=== PATIENT | female | born 1945 | race Caucasian/White ===

== ENCOUNTER 2022-05-16 22:52 | Inpatient (IN) | payer MEDICARE ==
[~2022-05-16] VITALS: Ht 165.1 cm; Wt 65.8 kg
[2022-05-16 23:39] LABS: HEMATOCRIT 41.5 % (31.2-41.9); MEAN CORPUSCULAR HEMOGLOBIN 30.2 uug (24.7-32.8); MEAN CORPUSCULAR VOLUME 87.9 fL (75.5-95.3); PLATELET COUNT (AUTO) 366 K/uL (179-408)
[2022-05-16] MEDS ORDERED: KETAMINE HCL 500 MG/10 ML INJ ONE (23:40)
[2022-05-16 23:45] LABS: NEUTROPHILS % (MANUAL) 0 % (42-75)
[2022-05-16] MEDS ORDERED: KETAMINE HCL 500 MG/10 ML INJ IV ONE (23:45)
[2022-05-16 23:56] LABS: ALANINE AMINOTRANSFERASE 18 U/L (14-59); ALKALINE PHOSPHATASE 76 U/L (50-136); ASPARTATE AMINOTRANSFERASE 13 U/L (15-37); BILIRUBIN,DIRECT 0.2 mg/dL (0.0-0.2); BILIRUBIN,TOTAL 0.9 mg/dL (0.2-1.0); CARBON DIOXIDE 26 mmol/L (21-32); CHLORIDE 99 mmol/L (98-107); CREATININE 1.1 mg/dL (0.6-1.3); GLUCOSE 123 mg/dL (74-106); TOTAL PROTEIN, SERUM 7.4 g/dL (6.4-8.2); UREA NITROGEN, BLOOD 20 mg/dL (7-18)
[2022-05-16 23:57] LABS: ACETAMINOPHEN < 2.0 ug/mL (10-30); POTASSIUM 2.8 mmol/L (3.5-5.1)
[2022-05-17 00:01] LABS: ETHANOL < 3 MG/DL (0-0)
[2022-05-17 00:19] LABS: THYROID STIMULATING HORMONE 4.686 mIU/mL (0.358-3.740)
[2022-05-17] MEDS: MAGNESIUM SULFATE/D5W 100 ML IV SCH ×2 (00:30→03:00)
[2022-05-17] MEDS: POTASSIUM CHLORIDE 50 ML IV SCH ×4 (00:30→03:30)
[2022-05-17] MEDS ORDERED: POTASSIUM CHLORIDE 200 ML ONE (00:55)
[2022-05-17] MEDS ORDERED: MAGNESIUM SULFATE/D5W 200 ML ONE (00:56)
[2022-05-17] MEDS ORDERED: CEFTRIAXONE 2 G in IV DEXTROSE 5% 100 ML IV ONE (01:30)
[2022-05-17] MEDS ORDERED: ACYCLOVIR IV 1,000 MG in IV DEXTROSE 5% 250 ML IV ONE (01:30)
[2022-05-17] MEDS ORDERED: TRIA15CR2 TP (01:42)
[2022-05-17] MEDS ORDERED: DUPI200S SQ (01:42)
[2022-05-17] MEDS ORDERED: FLUO118.7 TP (01:42)
[2022-05-17] MEDS ORDERED: CLOB15CR4 TP (01:42)
[2022-05-17] MEDS ORDERED: KETOROLAC TROMETHAMINE 60 MG INJ IM ONE ×2 (01:54→02:00)
[2022-05-17] MEDS ORDERED: ACYCLOVIR 500 MG VIAL IV ONE (02:13)
[2022-05-17] MEDS ORDERED: CEFTRIAXONE 1 G VIAL ONE (02:13)
[2022-05-17 03:09] LABS: *BILIRUBIN,URIN NEGATIVE (NEGATIVE); *BLOOD, URINE NEGATIVE (NEGATIVE); *CLARITY,URINE CLEAR (CLEAR); *COLOR,URINE YELLOW (YELLOW); *KETONES,URINE 1+ (NEGATIVE); *UROBILINOGEN,URINE 0.2 E.U./dl (NORMAL); LEUKOCYTE ESTERASE ,URINE NEGATIVE (NEGATIVE); NITRITE, URINE NEGATIVE (NEGATIVE); PH,URINE 5.5 (5.0-8.0); UGLUCOSE NEGATIVE (NEGATIVE)
[2022-05-17 03:22] LABS: *AMPHETAMINE, URINE NEGATIVE (NEGATIVE); *CANNABINOID, URINE NEGATIVE (NEGATIVE); *COCCAINE, URINE NEGATIVE (NEGATIVE); *OPIATE, URINE NEGATIVE (NEGATIVE); *PHENCYCLIDINE SCREEN,URINE NEGATIVE (NEGATIVE)
[2022-05-17] MEDS ORDERED: KETAMINE HCL 500 MG/10 ML INJ ONE (04:49)
[2022-05-17 06:05] LABS: CSF GLUCOSE 67 mg/dL (40-70); CSF PROTEIN 41 mg/dL (15-45)
[2022-05-17] MEDS ORDERED: ACETAMINOPHEN 325 MG TABLET PO PRN (06:15)
[2022-05-17] MEDS ORDERED: REMEDY ESSENTIAL ZINC PASTE 113 GM TP PRN (06:15)
[2022-05-17] MEDS ORDERED: ONDANSETRON 4 MG/2 ML VIAL IV PRN (06:15)
[2022-05-17] MEDS ORDERED: MAGNESIUM HYDROXIDE 30 ML LIQUID UDC PO PRN (06:15)
[2022-05-17] MEDS ORDERED: KETAMINE HCL 500 MG/10 ML INJ IV ONE (06:30)
[2022-05-17] MEDS ORDERED: CLOBETASOL PROPIONATE 0.05% CREAM 15 GM TUBE TP PRN (09:00)
[2022-05-17 10:26] VITALS: BP 129/47
[2022-05-17 15:56] VITALS: BP 167/58
[2022-05-17 20:00] VITALS: BP 147/60
[2022-05-18] VITALS: BP 138/62
[2022-05-18 04:00] VITALS: BP 130/65
[2022-05-18 09:20] LABS: MEAN CORPUSCULAR HEMOGLOBIN 30.5 uug (24.7-32.8); MEAN CORPUSCULAR VOLUME 89.1 fL (75.5-95.3); PLATELET COUNT (AUTO) 383 K/uL (179-408)
[2022-05-18 09:23] LABS: CREATININE 0.9 mg/dL (0.6-1.3); MAGNESIUM 2.3 mg/dL (1.8-2.4); PHOSPHOROUS 2.8 mg/dL (2.5-4.9); POTASSIUM 3.7 mmol/L (3.5-5.1)
[2022-05-18] MEDS ORDERED: ZOLPIDEM 5 MG TABLET PO PRN (10:00)
[2022-05-18 12:00] VITALS: BP 167/68
== END 2022-05-18 13:43 | disposition home or self-care (01) | DRG 73 ==
LOC: ER 22:56 → TELE3 05-17 09:27
DX: G90.8 Other disorders of autonomic nervous system (principal); G92.9 Unspecified toxic encephalopathy; E87.6 Hypokalemia; E03.9 Hypothyroidism, unspecified; E78.5 Hyperlipidemia, unspecified; I25.10 Atherosclerotic heart disease of native coronary artery without angina pectoris; L29.9 Pruritus, unspecified; R55 Syncope and collapse; T45.1X5A Adverse effect of antineoplastic and immunosuppressive drugs, initial encounter; Y92.009 Unspecified place in unspecified non-institutional (private) residence as the place of occurrence of the external cause; Z20.822 Contact with and (suspected) exposure to COVID-19
CPT/HCPCS: 36415; 70030-TC; 70450; 71045; 72125; 83605; 83735; 84100; 84157; 84443; 84484; 85025; 85730; 87040; 87077; 87205; 89051; 93005; 93307; 97161; A4663; G0378; G0480; J0133; J0696; J1885; J3475; J3480; J3490; J7040